=== PATIENT | male | born 2000 | race Caucasian/White ===

== ENCOUNTER 2022-04-27 07:58 | Emergency (ER) | payer OTHER ==
[~2022-04-27] VITALS: Ht 175.3 cm; Wt 101.0 kg
[2022-04-27] MEDS ORDERED: TETanus/Pertussis (Acell)/Diphther VAC/PF (Tdap-Adult) 0.5ml syringe IMVAC ONE (09:25)
[2022-04-27 09:40] VITALS: BP 118/76
== END 2022-04-27 09:41 | disposition home or self-care (01) ==
LOC: ER 07:59
DX: S01.01XA Laceration without foreign body of scalp, initial encounter (principal); X58.XXXA Exposure to other specified factors, initial encounter; Y93.89 Activity, other specified; Y92.89 Other specified places as the place of occurrence of the external cause; Y99.8 Other external cause status
CPT/HCPCS: 12001; 90471; 90715; 99283; A6449